=== PATIENT | female | born 1990 | race Caucasian/White ===

== ENCOUNTER 2016-03-28 08:18 | Emergency (ER) | payer BC ==
[2016-03-28] MEDS ORDERED: ONDANSETRON HCL/PF 2 MG/ML VIAL IV ONE (08:39)
[2016-03-28] MEDS ORDERED: MAG HYDROX/ALUMINUM HYD/SIMETH 30 ML UDC PO ONE (08:39)
[2016-03-28] MEDS ORDERED: LIDOCAINE HCL 20 ML UDC PO ONE (08:39)
[2016-03-28] MEDS ORDERED: RINGERS SOLUTION,LACTATED 1,000 ML IV ONE ×2 (08:39→09:40)
[2016-03-28] MEDS ORDERED: ONDANSETRON HCL/PF 2 MG/ML VIAL ONE (08:52)
[2016-03-28 08:53] LABS: Hematocrit 42.3 % (37.0-47.0); Hemoglobin 14.2 gm/dL (12.5-16.0); Mean Cell Volume 88.7 fl (78-100); Mean Corpuscular Hemoglobin 29.8 pg (27-31); Mean Corpuscular Hgb Conc 33.6 g/dl (32-36); Mean Platelet Volume 9.6 fl (6.0-9.5); Neutrophil # 9.1 K/mm3 (1.3-6.0); Neutrophil % 70.6 % (42-75.0); Platelet Count 314 K/mm3 (150-450); Red Blood Count 4.77 M/mm3 (4.2-5.4); Red Cell Distribution Width 14.8 % (11.5-14.0); White Blood Count 12.9 K/mm3 (4.0-10.5)
[2016-03-28 09:07] LABS: Albumin * 3.4 gm/dl (3.4-5.0); Anion Gap 16.8 mmol/L (6.8-13.8); Bilirubin, Total 0.2 mg/dL (0.0-1.1); Ca. Corrected For Albumin 8.8 mg/dL (8.4-10.2); Calcium * 8.6 mg/dL (7.9-10.9); Carbon Dioxide 21.8 mmol/L (24-32.6); Potassium 3.6 mmol/L (3.4-4.6); Total Protein 6.9 gm/dL (6.2-8.2)
--- NOTE | 2016-03-28 10:08 | ERNOTE ---
Medical Problem HPI - Narrative Date of Service: 03/28/16 - General Chief Complaint: Nausea/Vomiting Time Seen by Provider: 03/28/16 08:29 Source: patient, family Exam Limitations: no limitations - Immun/Allergies/Home Medications Immunizations: IMMUNIZATION HX Immunizations Up to Date Yes History of Influenza Vaccine No Hx Pneumococcal Vaccination No Allergies/Adverse Reactions: Allergies No Known Allergies Allergy (Verified 03/28/16 08:43) Home Medications: HOME MEDICATIONS Ondansetron [Zofran Odt] 8 mg PO QID #14 tab.rapdis 03/28/16 [Last Taken Unknown ] - History of Present History Narrative: This is a 25-year-old woman who woke up just before 7:00 this morning with vomiting and burning epigastric pain which has persisted. She vomited multiple times, and begin to feel lightheaded and almost as if she were going to pass out. She had no symptoms yesterday. She's not been around anyone who has been vomiting. She is having her menstrual period now. There is no diarrhea nor has there been any fever. She is still nauseated on presentation to the emergency room. There are no other symptoms. 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 Timing: getting worse Severity: moderate Modifying Factors - (Improves): Present: rest Modifying Factors - (Worsens): Present: movement, other - standing, drinking or eating Review of Systems - Review of Systems Constitutional: Present: malaise EYE: Present: no symptoms reported ENT: Present: no symptoms reported Respiratory: Present: no symptoms reported Cardiology: Present: no symptoms reported Gastrointestinal/Abdominal: Present: See HPI Genitourinary: Present: no symptoms reported Musculoskeletal: Present: no symptoms reported Skin: Present: no symptoms reported Neurological: Present: no symptoms reported Endocrine: Present: no symptoms reported Hematologic/Lymphatic: Present: no symptoms reported Psych: Present: no symptoms reported All Other Systems: All systems neg except as marked - Patient's Past Medical History Patient History - Medical: No pertinent hx Patient History - Cardiac/Respiratory: No pertinent hx Patient History - Cancer: No Hx of Cancer Patient History - Surgical Procedures: No surgical history LMP (females 10-50): now - Social History Living Situations: parents Have you smoked in the past 12 months: No Do you dip or chew tobacco: No Alcohol Use: none Drug Use: none Physical Exam - Physical Exam General Appearance: Present: wd/wn, alert, mild distress Eye Exam: Normal inspection: bilateral, PERRL: bilateral, EOMI: bilateral Ears, Nose, Throat: Present: normal ENT inspection, hearing grossly normal. Absent: nasal congestion, pharyngeal erythema Neck: Present: normal inspection Respiratory: Present: no respiratory distress, normal breath sounds Cardiovascular/Chest: Present: regular rate, rhythm, no murmur Gastrointestinal/Abdominal: Present: normal bowel sounds, nondistended, soft, no organomegaly, tenderness - epigastric Back Exam: Present: normal inspection, no CVA tenderness, no vertebral tenderness Extremity Exam: Present: normal inspection, no edema Neurological Exam: Present: alert, oriented Skin Exam: Present: normal color, warm/dry ED Progress - Results and Orders Patient's Lab Results:: I have reviewed the patient's lab results. - Vital Signs Patient's Vital Signs:: I have reviewed the patient's vital signs. Vital Signs: Vital Signs 03/28/16 03/28/16 08:36 09:46 Temperature 36.2 C L Pulse Rate 77 73 Respiratory 14 12 Rate Blood Pressure 109/55 78/46 O2 Sat by Pulse 99 97 Oximetry - Progress/Reassessment Chief Complaint: Nausea/Vomiting Progress:: Improved Departure - Departure Clinical Impression: Viral gastroenteritis Disposition: Home self-care Condition: Good Instructions: Viral Gastroenteritis, Adult, [id number], Clear Liquid Diet, [id number] Additional Instructions: Clear liquid diet for 72 hours. Rest. Tylenol as needed for discomfort. Followup with your doctor in 2-3 days. Referrals: Carmella Langston MD [Primary Care Provider] - Prescriptions: Ondansetron [Zofran Odt] 8 mg PO QID #14 tab.[email or web address]
[2016-03-28 11:25] VITALS: BP 97/57
== END 2016-03-28 11:25 | disposition home or self-care (01) ==
LOC: ER 08:18
DX: A08.4 Viral intestinal infection, unspecified (principal)